=== PATIENT | female | born 2000 | race Caucasian/White ===

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

== ENCOUNTER 2022-06-10 22:40 | Emergency (ER) | payer BC, SELFPAY ==
[2022-06-10 22:41] VITALS: BP 129/73; PULSE 103; RESP 22; TEMP 37.1; O2SAT 95; BMI 26.2
[2022-06-10 22:49] VITALS: BMI 25.7
--- NOTE | 2022-06-10 22:51 | ECG_ITS ---
APPROVED REPORT Exam: Resting ECG HR:91 bpm ECG Measurements Heart Rate 91 AXES NC 142 P 68 QRSd 94 QRS 86 QT 341 T 54 QTc 389 Conclusion SINUS RHYTHM POSSIBLE RIGHT VENTRICULAR CONDUCTION DELAY [RSR (QR) IN V1/V2] BORDERLINE ECG UNCONFIRMED REPORT Electronically signed by : Barrett Jordan MD 06/11/2022 20:17:04
[2022-06-10 23:04] LABS: Chloride 103 mmol/L (98-107); Potassium 4.1 mmoL/L (3.5-5.1); Sodium 141 mmol/L (136-145)
[2022-06-10 23:07] LABS: Alanine Aminotransferase 18 U/L (12-78); Albumin Level 4.9 g/dl (3.5-5.0); Albumin/Globulin Ratio 1.7 (1.1-1.8); Alkaline Phosphatase 66 U/L (38-126); Anion Gap 16.1 mEq/L (5-15); Aspartate Amino Transferase 30 U/L (14-36); Bilirubin,Total 0.7 mg/dl (0.2-1.3); Blood Urea Nitrogen 12 mg/dl (7-17); Carbon Dioxide 26 mmol/L (22.0-30.0); Creatinine Clearance Estimated 134 mL/min (50-200); Estimated Glomerular Filt Rate 104 ml/min (>60); GFR (African American) 125 ML/MIN (>60); Globulin 2.9 g/dL (1.3-3.2); Total Protein,Serum 7.8 g/dl (6.3-8.2)
[2022-06-10 23:08] LABS: Calcium 10.2 mg/dl (8.4-10.2); Glucose 108 mg/dl (74-100)
[2022-06-10 23:10] LABS: HCG Qualitative, Serum Negative (Negative)
--- NOTE | 2022-06-10 23:15 | [facility].EDANX ---
Discharge Plan Disposition Patient Disposition: Home, Self-Care Referrals Follow up/Referrals: Barrett Jordan MD [Primary Care Provider] - See instructions Clinical Impressions Clinical Impression: Acute anxiety, Syncope, vasovagal, Observed seizure-like activity Instructions Patient Instructions: Anxiety Disorders Discharge ED Provider: Slava Bowden Anxiety HPI General Chief Complaint: Anxiety Stated Complaint: SEIZURE Time Seen by Provider: 06/10/22 23:05 Mode of Arrival: Wheelchair Source of Information: Patient, Spouse, Parent(s) and Medical Record Limitations: No Limitations Description of Symptoms (Recalled from ER Triage Doc. by RN): pt had been taking the dogs nail off and it wouldnt come off the pt stated she just couldnt handle it. the pts came in and she was shaking and couldnt breathe pt thought she was haviing a seizure . pt was alert the entire time. pt does have a hx of anxiety History of Present Illness HPI narrative: acute anxiety episode and had sz like activity and presented to ed - no fever or rash or trauma and no hx of sz disorder complaint: anxiety Onset (ago): hour(s) Symptoms: extremity numbness/tingling Severity: moderate Place: home History of similar episodes: No Provoking factors: emotional stress Associated symptoms: denies other symptoms Related Data Allergies Allergy/AdvReac Type Severity Reaction Status Date / Time milk AdvReac Verified 06/10/22 22:50 [facility] Disclaimer: The information contained in this section may have been updated after the patient was seen, as this information can be updated by other users. Social History Smoking Status: Unknown if ever smoked alcohol intake: never current occupational status: employed Travel in the last 8 weeks: None ROS Obtained: Yes All systems reviewed & no additional complaints except as documented Physical Exam General General appearance: alert Head Head exam: normocephalic Eye Eye exam: Present PERRL and EOMI ENT ENT exam: Present mucous membranes moist Neck Neck exam: Absent trachea midline Respiratory Respiratory exam: Absent respiratory distress Cardiovascular Cardiovascular exam: Present regular rate Abdominal Exam Abdominal exam: Present soft Extremities Exam Extremities exam: Present full ROM Neurological Exam Neurological exam: Present alert and CN II-XII intact Psychiatric Psychiatric exam: Present anxious Skin Skin exam: Absent rash Medical Decision Making Medical Records Medical records reviewed: Yes I reviewed the patient's medical records. Anthony Inquiry Pt receiving controlled substance: No Vital Signs: 06/10/22 22:41 Temperature 98.7 F Temperature Source Oral Pulse Rate [Left] 103 H Respiratory Rate 22 Blood Pressure [Right Arm] 129/73 Blood Pressure Mean [Right Arm] 91 02 Sat by Pulse Oximetry 95 Oxygen Delivery Method Room Air Lab Data Lab results reviewed: Yes I reviewed the patient's lab results. Lab Results 06/10/22 21:50: Serum HCG, Qual Negative 06/10/22 21:50: Sodium 141, Potassium 4.1, Chloride 103, Carbon Dioxide 26, Anion Gap 16.1 H, BUN 12, Creatinine 0.70, Estimated Creat Clear 134, Estimated GFR 104, Est GFR ( Amer) 125, Glucose 108 H, Calcium 10.2, Total Bilirubin 0.7, AST 30, ALT 18, Alkaline Phosphatase 66, Total Protein 7.8, Albumin 4.9, Globulin 2.9, Albumin/Globulin Ratio 1.7 06/11/22 00:00: WBC 12.8 H, RBC 5.00, Hgb 14.9, Hct 44.1, MCV 88.2, MCH 29.9, MCHC 33.8, RDW 12.7, Plt Count 323, MPV 8.5, Neut % (Auto) 57.8, Lymph % (Auto) 34.2, [place] % (Auto) 5.7, Eos % (Auto) 1.2, Baso % (Auto) 1.0, Neut # (Auto) 7.4, Lymph # (Auto) 4.4, [place] # (Auto) 0.7, Eos # (Auto) 0.2, Baso # (Auto) 0.1 Result diagrams: 06/11/22 00:00 06/10/22 21:50 Orders (Tests/Meds): ED MEDICATIONS Generic Name Dose Route Start Last Admin Trade Name Freq PRN Reason Stop Dose Admin Sodium Chloride 10 ml
[2022-06-11 00:35] LABS: Basophils # 0.1 K/mm3 (0-0.2); Eosinophils # 0.2 K/mm3 (0.0-0.4); Eosinophils % 1.2 % (0.1-12.0); Hematocrit 44.1 % (37.0-47.0); Hemoglobin 14.9 g/dL (12.2-16.2); Lymphocytes # 4.4 K/mm3 (0.7-4.5); Lymphocytes % 34.2 % (10-50); Mean Corpuscular HGB Conc 33.8 g/dL (31.8-35.4); Mean Corpuscular Hemoglobin 29.9 pg (27.0-31.2); Mean Corpuscular Volume 88.2 fl (81-99); Mean Platelet Volume 8.5 fl (7.4-10.4); Monocytes # 0.7 K/mm3 (0.1-1.0); Monocytes % 5.7 % (1.7-9.3); Neutrophils # 7.4 K/mm3 (1.8-7.8); Neutrophils % 57.8 % (37.0-80.0); Platelet Count 323 K/mm3 (142-424); Red Cell Distribution Width 12.7 % (11.5-17.5); White Blood Count 12.8 K/mm3 (4.8-10.8)
[2022-06-11 01:36] VITALS: BP 130/75; PULSE 89; RESP 18; TEMP 36.6; O2SAT 99
== END 2022-06-11 01:39 | disposition home or self-care (01) ==
PROVIDERS: Emergency Provider Emergency Medicine; PCP Internal Medicine Adolescent Medicine
DX: R56.9 Unspecified convulsions (principal); R55 Syncope and collapse; F41.9 Anxiety disorder, unspecified
CPT/HCPCS: 80053; 84703; 85025; 93005; 96365; 96375; 99284